=== PATIENT | female | born 1980 | race Caucasian/White ===

== ENCOUNTER → 2020-12-14 10:49 | Outpatient (CLI) | payer BC, SELFPAY ==
[2020-12-14 11:43] LABS: Basophils # 0.1 K/mm3 (0-0.2); Basophils % 0.9 % (0.1-2.0); Eosinophils # 0.3 K/mm3 (0.0-0.4); Eosinophils % 2.9 % (0.1-12.0); Hematocrit 37.5 % (37.0-47.0); Hemoglobin 12.5 g/dL (12.2-16.2); Lymphocytes # 3.6 K/mm3 (0.7-4.5); Lymphocytes % 35.6 % (10-50); Mean Corpuscular HGB Conc 33.5 g/dL (31.8-35.4); Mean Corpuscular Hemoglobin 28.9 pg (27.0-31.2); Mean Corpuscular Volume 86.3 fl (81-99); Mean Platelet Volume 8.6 fl (7.4-10.4); Monocytes # 0.5 K/mm3 (0.1-1.0); Monocytes % 5.3 % (1.7-9.3); Neutrophils # 5.6 K/mm3 (1.8-7.8); Neutrophils % 55.2 % (37.0-80.0); Platelet Count 559 K/mm3 (142-424); Red Blood Count 4.34 M/mm3 (4.20-5.40); Red Cell Distribution Width 15.7 % (11.5-17.5); White Blood Count 10.1 K/mm3 (4.8-10.8)
[2020-12-14 11:58] LABS: Alanine Aminotransferase 29 U/L (12-78); Albumin Level 4.2 g/dl (3.5-5.0); Albumin/Globulin Ratio 1.7 (1.1-1.8); Alkaline Phosphatase 107 U/L (38-126); Anion Gap 13.6 mEq/L (5-15); Aspartate Amino Transferase 35 U/L (14-36); Bilirubin,Total 0.5 mg/dl (0.2-1.3); Blood Urea Nitrogen 9 mg/dl (7-17); Calcium 9.5 mg/dl (8.4-10.2); Carbon Dioxide 25 mmol/L (22.0-30.0); Chloride 106 mmol/L (98-107); Chol/HDL Ratio 5.4 (1-3.5); Cholesterol 189 mg/dl (140-200); Estimated Glomerular Filt Rate 79 ml/min (>60); GFR (African American) 96 ML/MIN (>60); Globulin 2.5 g/dL (1.3-3.2); Glucose 107 mg/dl (74-100); HDL Cholesterol 35 mg/dl (40-60); Potassium 4.6 mmoL/L (3.5-5.1); Sodium 140 mmol/L (136-145); Total Protein,Serum 6.7 g/dl (6.3-8.2); Triglycerides 183 mg/dl (30-150); VLDL Cholesterol 37 mg/dL (0-40)
[2020-12-14 12:09] LABS: Direct LDL Cholesterol 120.18 mg/dL (100-129)
[2020-12-14 12:13] LABS: 25-OH Vitamin D, Total 33.3 ng/mL (30-100)
[2020-12-14 12:46] LABS: Vitamin B12 439 pg/mL (239-931)
[2020-12-15 11:27] LABS: Hemoglobin A1C 5.2 % (4.0-6.0)
== END ==
PROVIDERS: Internal Medicine Adolescent Medicine; Visit Provider Nurse Practitioner Family
DX: Z00.00 Encounter for general adult medical examination without abnormal findings (principal); I10 Essential (primary) hypertension; E03.9 Hypothyroidism, unspecified; R53.83 Other fatigue; R73.9 Hyperglycemia, unspecified
CPT/HCPCS: 36415; 80053; 80061; 82306; 82607; 83036; 84443; 85025

== ENCOUNTER → 2020-12-27 14:42 | Outpatient (CLI) | payer BC, SELFPAY ==
--- NOTE | 2020-12-27 14:45 | US_ITS ---
PROCEDURE: US THYROID CLINICAL INDICATION: THYROID NODULE Thyroid nodule COMPARISON: No exams were available for comparison FINDINGS: Right lobe: 4.7 x 2 x 1.6 cm. There is diffuse heterogeneous echogenicity of the thyroid gland. This makes nodule detection somewhat difficult. There does appear to be a mixed solid and cystic nodule within the lower pole measuring 8 x 7 mm. The nodule is taller than wide. No calcifications. Left lobe: 4 x 1.7 x 1.6 cm with diffuse heterogeneous echogenicity. No discrete nodule Isthmus: 3 mm in thickness. No discrete isthmus nodule. Additional findings: IMPRESSION: Heterogeneous echogenicity of the thyroid gland with a mixed solid and cystic nodule in the lower pole on the right at 8 x 7 mm T rads level 3. Recommend 12 month follow-up. Dictated by: Federico Chris MD 12/28/2020 07:34 Federico Chris MD in [place] 12/28/2020 07:34
--- NOTE | 2020-12-27 14:45 | MM_ITS ---
PROCEDURE: MM DIG SCREENING MAMM BI W/CAD Digital Breast Tomosynthesis Included CLINICAL INDICATION: SCREENING COMPARISON: MG BR-MAMMGRM MONA CHRISTOPHERA from 03/27/2018 TECHNIQUE: Standard CC and MLO images and 3D Tomosynthesis was obtained. R2 CAD reviewed. FINDINGS: Average fibroglandular tissue. Scattered benign-appearing calcifications. No malignant appearing mass or malignant-appearing microcalcification. IMPRESSION: Negative BI-RAD Category: 1 Negative FOLLOW-UP: 1 YR 1 Year Follow-up (A letter has been sent to the patient regarding results of the study.) Dictated by: Federico Chris MD 01/11/2021 17:58 Federico Chris MD in [facility] 01/11/2021 17:58
== END ==
LOC: RAD 14:43
PROVIDERS: PCP Nurse Practitioner Family; Visit Provider Nurse Practitioner Family
DX: Z12.31 Encounter for screening mammogram for malignant neoplasm of breast (principal); E04.1 Nontoxic single thyroid nodule
CPT/HCPCS: 76536; 77063; 77067

== ENCOUNTER → 2021-03-17 10:03 | Outpatient (CLI) | payer BC, SELFPAY ==
--- NOTE | 2021-03-17 10:09 | XR_ITS ---
PROCEDURE: XR RIBS LT MIN 3V W CXR1V CLINICAL INDICATION: PERSISTENT COUGH COMPARISON: No exams were available for comparison FINDINGS: Multiple views of the left ribs show no obvious fracture, dislocation, lytic change, or blastic change. No evidence of pneumothorax or pleural effusion. IMPRESSION: No acute findings. Dictated by: Federico Chris MD 03/17/2021 14:10 Federico Chris MD in [facility] 03/17/2021 14:10
--- NOTE | 2021-03-17 10:09 | XR_ITS ---
PROCEDURE: XR CHEST 2V CLINICAL HISTORY: PERSISTENT COUGH COMPARISON: CT CT ABDOMEN PELVIS W CON from 08/24/2019 FINDINGS: The cardiomediastinal silhouette and pulmonary vascularity are within normal limits. The lungs are clear without infiltrates, suspicious nodules, or pleural effusions. Calcified nodule left lower lobe. No acute bony findings. IMPRESSION: No acute findings. Dictated by: Federico Chris MD 03/17/2021 13:58 Federico Chris MD in [facility] 03/17/2021 13:58
== END ==
LOC: RAD 10:06
PROVIDERS: PCP Nurse Practitioner Family; Visit Provider Nurse Practitioner Family
DX: R07.81 Pleurodynia (principal); R05.3 Chronic cough
CPT/HCPCS: 71046; 71101

== ENCOUNTER 2021-04-25 20:29 | Emergency (ER) | payer BC, SELFPAY ==
[2021-04-25 20:32] VITALS: BP 198/138; PULSE 122; RESP 18; TEMP 37.1; O2SAT 96; BMI 37.8
--- NOTE | 2021-04-25 20:58 | CT_ITS ---
PROCEDURE INFORMATION: Exam: CT Abdomen And Pelvis With Contrast Exam date and time: 04/25/2021 8:58 PM Age: 41 years old Clinical indication: Abdominal pain; Localized; Left; Prior surgery; Surgery type: Gallbladder, tubal, kidney cyst drained; Patient HX: Lt sided abd pain for 6 months, nausea for 1 month TECHNIQUE: Imaging protocol: Computed tomography of the abdomen and pelvis with contrast. Radiation optimization: All CT scans at this facility use at least one of these dose optimization techniques: automated exposure control; mA and/or kV adjustment per patient size (includes targeted exams where dose is matched to clinical indication); or iterative reconstruction. Contrast material: ISOVUE; Contrast volume: 75 ml; Contrast route: IV; COMPARISON: CT ABDOMEN PELVIS W CON 08/24/2019 2:26 AM FINDINGS: Lungs: Calcified granuloma left lower lobe. There are calcified lymph nodes identified within the left hilar and infrahilar regions. No evidence of mass or infiltrate. No evidence of pleural effusion. Liver: The liver is normal in size and attenuation. No intrahepatic biliary dilitation. Gallbladder and bile ducts: The gallbladder is surgically absent. No evidence of extrahepatic biliary dilatation. Pancreas: Normal. No ductal dilation. Spleen: Normal. No splenomegaly. Granulomatous calcifications noted. Adrenal glands: Normal. No mass. Kidneys and ureters: Again, there are multiple cysts identified within the kidneys. An exophytic cyst of the superior pole the left kidney now measures 3.0 cm in diameter, compared with 2.1 cm on prior examination. Overall density however has decreased in the antrum. There is calcification along the wall of a small cyst within the inferior pole of the left kidney. Correlation with ultrasound of the retroperitoneum with attention to the kidneys would be helpful. Stomach and bowel: Unremarkable. No obstruction. No mucosal thickening. Small bowel mesentery is normal. Appendix: Unremarkable. Intraperitoneal space: Unremarkable. No free air. No significant fluid collection. Vasculature: Arterial atheromatous calcifications are noted. No abdominal aortic aneurysm. There are calcified phleboliths within the pelvis. Lymph nodes: Unremarkable. No enlarged lymph nodes. Urinary bladder: Unremarkable as visualized. Reproductive: Unremarkable as visualized. Bones/joints: Unremarkable. No acute fracture. Soft tissues: There is a small umbilical hernia which contains fat. IMPRESSION: 1. No evidence of acute process within the abdomen or pelvis. 2. Multiple cysts within the kidneys, particularly the left kidney. There is a cyst arising from the superior pole of the right kidney which has increased in size although by CT and has benign characteristics. Correlation with ultrasound of the retroperitoneum with attention to the kidneys may be helpful. 3. Small umbilical hernia which contains fat. COMMENTS: Consistent with the [employer]'s Incidental Findings Committee white paper (J Am Homa Radiol 2018): Any incidental renal lesion less than 1 cm or classified as too small to characterize, or any incidental cystic renal lesion characterized as simple-appearing, is likely benign. No follow-up imaging is recommended for these lesions per consensus recommendations based on imaging criteria.
--- NOTE | 2021-04-25 21:15 | HMH.EDGENADL ---
ED Disposition Clinical Impression: Flank pain, acute Hematuria Qualifiers: Hematuria type: unspecified type Qualified Code(s): R31.9 - Hematuria, unspecified Disposition: Home, Self-Care Condition on Discharge: Good Instructions: DI for Flank Pain Additional Instructions: call pcp for urine culture and follow up - may need to see urology Referrals: Provider,Referral, [Primary Care Provider] - - Critical Care Critical Care Time: No Attestation: On 04/25/21, the high probability of a clinically significant, sudden or life threatening deterioration of the following system(s) required my full and direct attention, intervention and personal management. The time I documented below is in addition to time spent performing reported procedures but includes the following listed in this critical care notation. Medical Decision Making - Medical Records Medical records reviewed: Yes: I reviewed the patient's medical records. - Varghese Inquiry Pt receiving controlled substance: No Vital Signs: 04/25/21 20:32 Temperature 98.8 F Temperature Source Oral Pulse Rate [Apical] 122 H Respiratory Rate 18 Blood Pressure [Right Arm] 198/138 H Blood Pressure Mean [Right Arm] 158 Blood Pressure Source [Right Arm] Automatic Cuff Blood Pressure Position [Right Arm] Sitting 02 Sat by Pulse Oximetry 96 Oxygen Delivery Method Room Air - Lab Data Lab results reviewed: Yes: I reviewed the patient's lab results. Lab Results 04/25/21 21:14: Urine Color Red, Urine Appearance Cloudy, Urine pH 5.5, Ur Specific Randolph 1.010, Urine Protein 2+, Urine Glucose (UA) Negative, Urine Ketones Negative, Urine Blood 3+, Urine Nitrate Negative, Urine Bilirubin 1+ A, Urine Urobilinogen 0.2, Ur Leukocyte Esterase 1+ A, Urine RBC Tntc, Urine WBC 10-20, Ur Squamous Epith Cells 3-5, Urine Bacteria 2+ 04/25/21 21:14: WBC 11.8 H, RBC 4.49, Hgb 13.3, Hct 40.2, MCV 89.5, MCH 29.6, MCHC 33.1, RDW 14.8, Plt Count 754 H, MPV 8.2, Neut % (Auto) 60.7, Lymph % (Auto) 29.5, Humphreys % (Auto) 6.2, Eos % (Auto) 2.8, Baso % (Auto) 0.9, Neut # (Auto) 7.2, Lymph # (Auto) 3.5, Humphreys # (Auto) 0.7, Eos # (Auto) 0.3, Baso # (Auto) 0.1, ESR 28 H 04/25/21 21:14: Sodium 141, Potassium 3.3 L, Chloride 104, Carbon Dioxide 27, Anion Gap 13.3, BUN 7, Creatinine 0.80, Estimated Creat Clear 149, Estimated GFR 79, Est GFR ( Amer) 95, Glucose 123 H, Calcium 10.2, Total Bilirubin 0.2, AST 70 H, ALT 50, Alkaline Phosphatase 128 H, C-Reactive Protein 3.4, Total Protein 7.4, Albumin 4.5, Globulin 2.9, Albumin/Globulin Ratio 1.6, Amylase 48, Procalcitonin 0.058 04/25/21 21:14: Lipase 48 Result diagrams: 04/25/21 21:14 04/25/21 21:14 Orders (Tests/Meds): ED MEDICATIONS Discontinued Medications Generic Name Dose Route Start Last Admin Trade Name Freq PRN Reason Stop Dose Admin Sodium Chloride 1,000 mls @ 999 mls/hr 04/25/21 21:30 04/25/21 21:28 Sod Chlor 0.9% 1000ml Bag IV 04/25/21 22:30 999 mls/hr .Q1H1M ANIL Administration Iopamidol 75 ml 04/25/21 22:06 04/25/21 22:06 Iopamidol-370 (76%);100ml Bottle IV 04/25/21 22:07 75 ml ONCE ONE Administration Sodium Chloride 10 ml 04/25/21 22:06 04/25/21 22:06 Sodium Chloride 0.9% 10ml Syr (Rad Only) IV 04/25/21 22:07 10 ml ONCE ONE Administration ORDERS Category Date Time Status Urine Culture Stat Micro 04/25/21 21:14 Received - CT Data CT Scan: Abdomen, Pelvis Time Received: 23:[address] Reviewed: Yes: I have viewed the radiologist's interpretation Preliminary Findings: Normal/NAD Medical Decision Narrative: has abn urine but otherwise ok labs and ct General Adult HPI - General Chief complaint: PAIN Stated complaint: cough,nausa, left side pain Time Seen by Provider: 04/25/21 21:16 Mode of Arrival: Ambulatory Source of Information: Patient, Medical Record Limitations: No Limitations Description of Symptoms (Recalled from ER Triage Doc. by RN): Patient c/o left sided abdomi
[2021-04-25 21:22] LABS: Microscopic, Urine URINE MICROSCOPIC (MICROSCOPIC)
[2021-04-25 21:25] LABS: Basophils # 0.1 K/mm3 (0-0.2); Basophils % 0.9 % (0.1-2.0); Eosinophils # 0.3 K/mm3 (0.0-0.4); Eosinophils % 2.8 % (0.1-12.0); Hematocrit 40.2 % (37.0-47.0); Hemoglobin 13.3 g/dL (12.2-16.2); Lymphocytes # 3.5 K/mm3 (0.7-4.5); Lymphocytes % 29.5 % (10-50); Mean Corpuscular HGB Conc 33.1 g/dL (31.8-35.4); Mean Corpuscular Hemoglobin 29.6 pg (27.0-31.2); Mean Corpuscular Volume 89.5 fl (81-99); Mean Platelet Volume 8.2 fl (7.4-10.4); Monocytes # 0.7 K/mm3 (0.1-1.0); Monocytes % 6.2 % (1.7-9.3); Neutrophils # 7.2 K/mm3 (1.8-7.8); Neutrophils % 60.7 % (37.0-80.0); Platelet Count 754 K/mm3 (142-424); Red Blood Count 4.49 M/mm3 (4.20-5.40); Red Cell Distribution Width 14.8 % (11.5-17.5); White Blood Count 11.8 K/mm3 (4.8-10.8)
[2021-04-25 21:36] LABS: Chloride 104 mmol/L (98-107); Potassium 3.3 mmoL/L (3.5-5.1); Sodium 141 mmol/L (136-145)
[2021-04-25 21:38] LABS: Amylase 48 U/L (30-110); Blood Urea Nitrogen 7 mg/dl (7-17)
[2021-04-25 21:39] LABS: Alanine Aminotransferase 50 U/L (12-78); Albumin Level 4.5 g/dl (3.5-5.0); Albumin/Globulin Ratio 1.6 (1.1-1.8); Alkaline Phosphatase 128 U/L (38-126); Anion Gap 13.3 mEq/L (5-15); Aspartate Amino Transferase 70 U/L (14-36); Bilirubin,Total 0.2 mg/dl (0.2-1.3); Calcium 10.2 mg/dl (8.4-10.2); Carbon Dioxide 27 mmol/L (22.0-30.0); Creatinine Clearance Estimated 149 mL/min (50-200); Estimated Glomerular Filt Rate 79 ml/min (>60); GFR (African American) 95 ML/MIN (>60); Globulin 2.9 g/dL (1.3-3.2); Glucose 123 mg/dl (74-100); Lipase 48 U/L (23-300); Total Protein,Serum 7.4 g/dl (6.3-8.2)
[2021-04-25 21:41] LABS: Appearance,Urine CLOUDY (Clear); Blood, Urine 3+ (Negative); Color,Urine RED (Yellow); Glucose,Urine (UA) Negative (Negative); Ketones,Urine Negative (Negative); Leukocyte Esterase,Urine 1+ (Negative); Nitrate,Urine Negative (Negative); PH,Urine 5.5 (5.0-8.5); Protein,Urine 2+ (Negative); Urobilinogen,Urine 0.2 EU/dl (0.2)
[2021-04-25 21:45] LABS: C-Reactive Protein 3.4 mg/L (0-4)
[2021-04-25 21:55] LABS: Erythrocyte Sedimentation Rate 28 mm/hr (0-20)
[2021-04-25 22:00] LABS: Bilirubin,Urine 1+ (Negative)
[2021-04-25 22:07] LABS: Bacteria,Urine 2+ /lpf; RBC,Urine TNTC #/hpf (0-3)
[2021-04-25 22:16] LABS: Procalcitonin 0.058 ng/mL (0.0-2.0)
[2021-04-25 23:46] VITALS: BP 168/98; PULSE 73; RESP 18; TEMP 36.6; O2SAT 97
== END 2021-04-25 23:48 | disposition home or self-care (01) ==
PROVIDERS: Emergency Provider Emergency Medicine
DX: R10.11 Right upper quadrant pain (principal); R31.9 Hematuria, unspecified
CPT/HCPCS: 74177; 80053; 81001; 82150; 83690; 84145; 85025; 85651; 86140; 87086; 96365; 96375; 99283; J2405; Q9967

== ENCOUNTER 2021-07-27 20:00 | Emergency (ER) | payer BC, MEDICAID, SELFPAY ==
--- NOTE | 2021-07-27 20:59 | HMH.EDUTC ---
[facility] [place] Disposition Clinical Impression: COVID-19 Asthma Qualifiers: Asthma severity: unspecified severity Asthma persistence: unspecified Asthma complication type: unspecified Qualified Code(s): J45.909 - Unspecified asthma, uncomplicated Disposition: Home, Self-Care Condition on Discharge: Good Instructions: DI for COVID-19 (Suspected or Confirmed ), Preventing the Spread of Coronavirus Discharge Instructions Additional Instructions: Drink plenty of fluids. Take tylenol or ibuprofen for pain or fever. Take the medications as directed. Follow up with your regular doctor. GO TO THE ER FOR ANY WORSENING SYMPTOMS Quarantine until you know the results of your covid-19 test. Notify your school or workplace of your results and follow their instructions regarding return to work/school. Prescriptions: Albuterol Sulfate [Albuterol Sulfate Hfa] 2 puffs IH Q6HP PRN 30 Days #1 each PRN Reason: Shortness Of Breath Transmission Status: Received by [facility] Promethazine/Dextromethorphan [Promethazine-Dm Syrup] 5 ml PO Q6HP PRN #240 ml PRN Reason: Cough Transmission Status: Received by [facility] methylPREDNISolone [Medrol] 4 mg PO DIRECTED 6 Days #21 packet Transmission Status: Received by [facility] Azithromycin [Z-Lalo 250mg Tab*] 250 mg PO UD DOSE PK #6 tab Transmission Status: Received by [facility] Referrals: Provider,Referral, [Primary Care Provider] - Time of Disposition: 21:37 Medical Decision Making - Medical Records Medical records reviewed: No: I reviewed the patient's medical records. - Varghese Inquiry Pt receiving controlled substance: No Vital Signs: 07/27/21 21:12 07/27/21 21:20 Temperature 99.1 F 99.1 F Temperature Source Oral Pulse Rate 117 H Pulse Rate [Left] 117 H Respiratory Rate 16 16 Blood Pressure 153/86 H Blood Pressure [Right Arm] 153/86 H Blood Pressure Mean [Right Arm] 108 02 Sat by Pulse Oximetry 98 [facility] [place] HPI - General Stated complaint: covid test/treated for symptoms Time Seen by Provider: 07/27/21 21:32 - History of Present Illness Provider Complaint: She states that for the past 1 day, she has had chills, fever, malaise and body aches. She has been vaccinated against covid-19. - Related Data Home Medications Medication Instructions Recorded Confirmed Amlodipine Besylate [Amlodipine 5 mg PO DAILY 04/25/21 04/25/21 10mg Tab] Furosemide [Furosemide 20mg Tab*] 20 mg PO DAILY 04/25/21 04/25/21 Levothyroxine Sodium [Euthyrox] 75 mcg PO DAILY 04/25/21 04/25/21 Previous Rx's Medication Instructions Recorded Albuterol Sulfate [Albuterol 2 puffs IH Q6HP PRN 30 Days #1 each 07/27/21 Sulfate Hfa] Azithromycin [Z-Lalo 250mg Tab*] 250 mg PO UD DOSE PK #6 tab 07/27/21 Promethazine/Dextromethorphan 5 ml PO Q6HP PRN #240 ml 07/27/21 [Promethazine-Dm Syrup] methylPREDNISolone [Medrol] 4 mg PO DIRECTED 6 Days #21 07/27/21 packet Allergies Allergy/AdvReac Type Severity Reaction Status Date / Time levofloxacin [From Levaquin] Allergy Verified 08/24/19 00:07 Penicillins Allergy Verified 08/24/19 00:07 [facility] History - Hepatitis A Screen Attestation statement:: This patient has been screened for Hepatitis A risk factors. I have reviewed the patient's past medical history: Yes Medical History: Denies:: Diabetes Mellitus Type 1, Diabetes Mellitus Type 2 - Social History Smoking Status: Never smoker Alcohol Intake: never Occupational Status: other Housing: house ROS Obtained: Yes All systems reviewed & no additional complaints - Constitutional Constitutional: Reports as per HPI - Eyes Eyes: Denies eye discharge - ENT Ears, Nose, Mouth, and Throat: Reports as per HPI - Cardiovascular Cardiovascular: Denies chest pain - Respiratory Respiratory: Reports chest congestion, Reports cough, Denies dyspnea, Denies stridor, Denies wheezing Physical Exam -
[2021-07-27 21:12] VITALS: BP 153/86; PULSE 117; RESP 16; TEMP 37.3; O2SAT 98; BMI 37.8
[2021-07-27 21:20] VITALS: BP 153/86; PULSE 117; RESP 16; TEMP 37.3
== END 2021-07-27 21:44 | disposition home or self-care (01) ==
PROVIDERS: Emergency Provider Nurse Practitioner Family
DX: U07.1 COVID-19 (principal); J45.909 Unspecified asthma, uncomplicated
CPT/HCPCS: 99212; C9803; G0463; U0003; U0005

== ENCOUNTER 2021-11-10 13:53 | Emergency (ER) | payer MEDICAID, SELFPAY ==
[2021-11-10 14:00] VITALS: BP 158/86; PULSE 103; RESP 18; TEMP 36.8; O2SAT 98; BMI 38.1
[2021-11-10 14:10] VITALS: BP 158/86; PULSE 103; RESP 18; TEMP 36.8; O2SAT 98
--- NOTE | 2021-11-10 14:10 | HMH.EDUTC ---
[facility] [place] Clinical Impression: Insect bite Qualifiers: Encounter type: initial encounter Site of insect bite: upper arm Laterality: left Qualified Code(s): S40.862A - Insect bite (nonvenomous) of left upper arm, initial encounter; W57.XXXA - Bitten or stung by nonvenomous insect and other nonvenomous arthropods, initial encounter Cellulitis Qualifiers: Site of cellulitis: extremity Site of cellulitis of extremity: lower extremity Laterality: left Qualified Code(s): L03.116 - Cellulitis of left lower limb Disposition: Home, Self-Care Condition on Discharge: Good Instructions: How to Care for an Insect Bite or Sting, DI for Cellulitis -- Adult Additional Instructions: if worsen return or be seen in ed follow up with pcp if no improvement antibiotics as ordered cream bid Prescriptions: cephALEXin [Cephalexin 500mg Tab] 500 mg PO BID 7 Days #14 tab [facility] Triamcinolone Acetonide 1 applic TP BID 3 Days #15 gm Transmission Status: Pending to [facility] Referrals: Provider,Referral, MD [Primary Care Provider] - Time of Disposition: 14:18 Medical Decision Making - Varghese Inquiry Pt receiving controlled substance: No Vital Signs: 11/10/21 14:00 11/10/21 14:10 Temperature 98.3 F 98.3 F Temperature Source Oral Pulse Rate 103 H Pulse Rate [Right Brachial] 103 H Respiratory Rate 18 18 Blood Pressure 158/86 H Blood Pressure [Right Arm] 158/86 H Blood Pressure Mean [Right Arm] 110 Blood Pressure Source [Right Arm] Automatic Cuff Blood Pressure Position [Right Arm] Sitting 02 Sat by Pulse Oximetry 98 Oxygen Delivery Method Room Air [facility] [place] HPI - General Chief complaint: Urgent Treatment Center Stated complaint: insect bite Time Seen by Provider: 11/10/21 14:10 Mode of Arrival: Ambulatory Source of Information: Patient Limitations: No Limitations Description of Symptoms (Recalled from Triage Doc. by RN): PATIENT C/O BITE TO LEFT UPPER ARM THAT HAPPENED YESTERDAY. SWELLING AND REDNESS NOTED AROUND AREA HEENT Symptoms (Recalled from RN notes): No Resp Symptoms (Recalled from RN notes): No Skin Symptoms (Recalled from RN notes): Yes MS Symptoms (Recalled from RN notes): No Functional Status (Recalled from RN notes): WNL - History of Present Illness Provider Complaint: 41 yr old female presents for insect bite to left upper arm that happened yesterday and worse today. - Related Data Home Medications Medication Instructions Recorded Confirmed Levothyroxine Sodium [Euthyrox] 75 mcg PO DAILY 04/25/21 11/10/21 Previous Rx's Medication Instructions Recorded Triamcinolone Acetonide 1 applic TP BID 3 Days #15 gm 11/10/21 cephALEXin [Cephalexin 500mg Tab] 500 mg PO BID 7 Days #14 tab 11/10/21 Allergies Allergy/AdvReac Type Severity Reaction Status Date / Time levofloxacin [From Levaquin] Allergy Verified 08/24/19 00:07 Penicillins Allergy Verified 08/24/19 00:07 - Worker's Comp Is this a Worker's Comp case?: No [facility] History - Hepatitis A Screen Attestation statement:: This patient has been screened for Hepatitis A risk factors. I have reviewed the patient's past medical history: Yes Medical History: Denies:: Diabetes Mellitus Type 1, Diabetes Mellitus Type 2 - Social History Smoking Status: Never smoker Alcohol Intake: never Occupational Status: other Housing: house ROS Obtained: Yes Systems reviewed as appropriate & no additional complaints - Constitutional Constitutional: Reports system reviewed and no additional complaints, except as docu, Denies fever(s) - Eyes Eyes: Reports system reviewed and no additional complaints, except as docu, Denies dry eyes - ENT Ears, Nose, Mouth, and Throat: Reports system reviewed and no additional complaints, except as docu, Denies sore throat - Cardiovascular Cardiovascular: Reports system reviewed and no additional complaints, except as docu, Denies chest pain
== END 2021-11-10 14:20 | disposition home or self-care (01) ==
PROVIDERS: Emergency Provider Nurse Practitioner Family
DX: S40.862A Insect bite (nonvenomous) of left upper arm, initial encounter (principal); L03.116 Cellulitis of left lower limb; Z79.51 Long term (current) use of inhaled steroids; Z79.899 Other long term (current) drug therapy; Z88.0 Allergy status to penicillin; Z88.8 Allergy status to other drugs, medicaments and biological substances; W57.XXXA Bitten or stung by nonvenomous insect and other nonvenomous arthropods, initial encounter
CPT/HCPCS: 99213; G0463

== ENCOUNTER 2021-11-12 12:15 | Emergency (ER) | payer MEDICAID, SELFPAY ==
[2021-11-12 12:30] VITALS: BP 153/93; PULSE 92; RESP 18; TEMP 36.7; O2SAT 98; BMI 37.4
[2021-11-12 12:42] VITALS: BP 153/92; PULSE 92; RESP 18; TEMP 36.7; O2SAT 98; BMI 37.4
--- NOTE | 2021-11-12 13:02 | HMH.EDUTC ---
[facility] [place] Impression: Abscess of left arm, Cellulitis of left arm Disposition: Home, Self-Care Condition on Discharge: Good Instructions: Cellulitis, Boil Additional Instructions: Keep the affected area clean and dry. Follow up with your regular doctor. Take the antibiotics as directed and apply the topical antibiotics as directed. Apply warm wet compresses to the affected area three or four times per day. GO TO THE ER FOR ANY WORSENING SYMPTOMS Watch the redness and if it continues to spread outside the lines please return and go to the er. Keep taking the cephalexin that you are on. Prescriptions: Sulfamethoxazole/Trimethoprim [Bactrim DS tablet] 1 each PO BID 10 Days #20 tab Transmission Status: Received by [facility] Mupirocin [Bactroban 2% Ointment 22gm tube] 1 applicatio TP TID 7 Days #1 gm Transmission Status: Received by [facility] Referrals: Provider,Referral, [Primary Care Provider] - Time of Disposition: 13:29 Medical Decision Making - Medical Records Medical records reviewed: No: I reviewed the patient's medical records. - Varghese Inquiry Pt receiving controlled substance: No Vital Signs: 11/12/21 12:30 11/12/21 12:42 11/12/21 13:31 Temperature 98.0 F 98.0 F 98.0 F Temperature Source Oral Oral Pulse Rate 92 H Pulse Rate [Brachial] 92 H 92 H Respiratory Rate 18 18 18 Blood Pressure 153/92 H Blood Pressure [Right Arm] 153/93 H 153/92 H Blood Pressure Mean [Right Arm] 113 112 Blood Pressure Source [Right Arm] Automatic Cuff Blood Pressure Position [Right Arm] Sitting 02 Sat by Pulse Oximetry 98 98 Oxygen Delivery Method Room Air Orders (Tests/Meds): ED MEDICATIONS Discontinued Medications Generic Name Dose Route Start Last Admin Trade Name Freq PRN Reason Stop Dose Admin Ceftriaxone Sodium 1 gm 11/12/21 13:08 11/12/21 13:20 Ceftriaxone 1gm Vial IM 11/12/21 13:09 1 gm ONCE ONE Administration Lidocaine HCl 0 ml 11/12/21 13:08 11/12/21 13:20 Lidocaine 1% 5ml Pf Vial IM 11/12/21 13:09 2 ml ONCE ONE Administration ORDERS Category Date Time Status Wound Culture and Gram Stain Stat Micro 11/12/21 13:[address] [facility] [place] - General Stated complaint: insect bite; red/swelling Time Seen by Provider: 11/12/21 13:03 Description of Symptoms (Recalled from Triage Doc. by RN): patient comes in today with a bug bite to left arm. patient does not know what bit her. patient states the bit occured sunday night and has progressively gotten worse HEENT Symptoms (Recalled from RN notes): No Resp Symptoms (Recalled from RN notes): No Skin Symptoms (Recalled from RN notes): Yes MS Symptoms (Recalled from RN notes): No Functional Status (Recalled from RN notes): wnl - History of Present Illness Provider Complaint: She states that she recieved a bug bite to her left arm 3 days ago. Since then, the site has gotten progressively more red and mildly swollen. - Related Data Home Medications Medication Instructions Recorded Confirmed Levothyroxine Sodium [Euthyrox] 75 mcg PO DAILY 04/25/21 11/12/21 Previous Rx's Medication Instructions Recorded Triamcinolone Acetonide 1 applic TP BID 3 Days #15 gm 11/10/21 cephALEXin [Cephalexin 500mg Tab] 500 mg PO BID 7 Days #14 tab 11/10/21 Mupirocin [Bactroban 2% Ointment 1 applicatio TP TID 7 Days #1 gm 11/12/21 22gm tube] Sulfamethoxazole/Trimethoprim 1 each PO BID 10 Days #20 tab 11/12/21 [Bactrim DS tablet] Allergies Allergy/AdvReac Type Severity Reaction Status Date / Time levofloxacin [From Levaquin] Allergy Verified 11/12/21 12:45 Penicillins Allergy Verified 11/12/21 12:45 - Worker's Comp Is this a Worker's Comp case?: No [facility] History - Hepatitis A Screen Attestation statement:: This patient has been screened for Hepatitis A risk factors. I have reviewed the patient's past medical history: Yes Med
[2021-11-12 13:31] VITALS: BP 153/92; PULSE 92; RESP 18; TEMP 36.7
== END 2021-11-12 13:35 | disposition home or self-care (01) ==
LOC: ER 12:34 → UTC 12:34
PROVIDERS: Emergency Provider Nurse Practitioner Family
DX: L02.818 Cutaneous abscess of other sites (principal); L03.114 Cellulitis of left upper limb; T14.8XXA Other injury of unspecified body region, initial encounter; Z79.899 Other long term (current) drug therapy; Z88.0 Allergy status to penicillin; Z88.8 Allergy status to other drugs, medicaments and biological substances
CPT/HCPCS: 87070; 87205; 99213; G0463; J0696

== ENCOUNTER 2021-11-13 22:13 | Emergency (ER) | payer MEDICAID, SELFPAY ==
[2021-11-13 22:14] VITALS: BP 159/91; PULSE 96; RESP 18; TEMP 36.9; O2SAT 99; BMI 36.3
[2021-11-14 00:27] VITALS: BMI 36.3
[2021-11-14 00:34] LABS: Basophils # 0.3 K/mm3 (0-0.2); Basophils % 2.7 % (0.1-2.0); Eosinophils # 0.7 K/mm3 (0.0-0.4); Eosinophils % 5.7 % (0.1-12.0); Hematocrit 39.3 % (37.0-47.0); Hemoglobin 12.9 g/dL (12.2-16.2); Lymphocytes # 3.3 K/mm3 (0.7-4.5); Mean Corpuscular Hemoglobin 27.9 pg (27.0-31.2); Mean Corpuscular Volume 84.7 fl (81-99); Mean Platelet Volume 8.9 fl (7.4-10.4); Monocytes # 0.6 K/mm3 (0.1-1.0); Monocytes % 4.6 % (1.7-9.3); Neutrophils # 7.4 K/mm3 (1.8-7.8); Platelet Count 699 K/mm3 (142-424); Red Blood Count 4.64 M/mm3 (4.20-5.40); Red Cell Distribution Width 16.5 % (11.5-17.5); White Blood Count 12.3 K/mm3 (4.8-10.8)
--- NOTE | 2021-11-14 00:36 | HMH.EDSKAF ---
ED Disposition Clinical Impression: SIRS (systemic inflammatory response syndrome) Cellulitis Qualifiers: Site of cellulitis: extremity Site of cellulitis of extremity: upper extremity Laterality: left Qualified Code(s): L03.114 - Cellulitis of left upper limb Disposition: Home, Self-Care Condition on Discharge: Good Instructions: Cellulitis Additional Instructions: use meds and see pcp for follow up Referrals: Provider,Referral, MD [Primary Care Provider] - - Critical Care Critical Care Time: No Attestation: On 11/13/21, the high probability of a clinically significant, sudden or life threatening deterioration of the following system(s) required my full and direct attention, intervention and personal management. The time I documented below is in addition to time spent performing reported procedures but includes the following listed in this critical care notation. Medical Decision Making - Medical Records Medical records reviewed: Yes: I reviewed the patient's medical records. - [place] Inquiry Pt receiving controlled substance: No Vital Signs: 11/13/21 22:14 Temperature 98.5 F Temperature Source Oral Pulse Rate [Right] 96 H Respiratory Rate 18 Blood Pressure [Right Arm] 159/91 H Blood Pressure Mean [Right Arm] 113 Blood Pressure Source [Right Arm] Automatic Cuff 02 Sat by Pulse Oximetry 99 Oxygen Delivery Method Room Air - Lab Data Lab results reviewed: Yes: I reviewed the patient's lab results. Lab Results 11/14/21 00:20: WBC 12.3 H, RBC 4.64, Hgb 12.9, Hct 39.3, MCV 84.7, MCH 27.9, MCHC 33.0, RDW 16.5, Plt Count 699 H, MPV 8.9, Neut % (Auto) 60.0, Lymph % (Auto) 27.0, [place] % (Auto) 4.6, Eos % (Auto) 5.7, Baso % (Auto) 2.7 H, Neut # (Auto) 7.4, Lymph # (Auto) 3.3, [place] # (Auto) 0.6, Eos # (Auto) 0.7 H, Baso # (Auto) 0.3 H 11/14/21 00:20: Sodium 136, Potassium 3.8, Chloride 103, Carbon Dioxide 24, Anion Gap 12.8, BUN 10, Creatinine 1.00, Estimated Creat Clear 118, Estimated GFR 61, Est GFR ( Amer) 74, Glucose 105 H, Calcium 9.8, Total Bilirubin 0.1 L, AST 53 H, ALT 51, Alkaline Phosphatase 147 H, C-Reactive Protein 6.7 H, Total Protein 7.5, Albumin 4.4, Globulin 3.1, Albumin/Globulin Ratio 1.4, Procalcitonin 0.049 Result diagrams: 11/14/21 00:20 11/14/21 00:20 Orders (Tests/Meds): ED MEDICATIONS Generic Name Dose Route Start Last Admin Trade Name Freq PRN Reason Stop Dose Admin Vancomycin HCl 2,000 mg/ 250 mls @ 125 mls/hr 11/14/21 01:15 Sodium Chloride IV 11/14/21 03:14 ONCE ONE Miscellaneous 1 each 11/14/21 00:30 Vancomycin Consult Request * 12/14/21 00:29 CONSULT PHARMACY [facility]IL Discontinued Medications Generic Name Dose Route Start Last Admin Trade Name Freq PRN Reason Stop Dose Admin Ketorolac Tromethamine 30 mg 11/14/21 00:29 11/14/21 00:40 Ketorolac 30mg/Ml Vial IV 11/14/21 00:30 30 mg ONCE ONE Administration Methylprednisolone Sodium Succinate 125 mg 11/14/21 00:29 11/14/21 00:40 Methylprednisolone Sod Succ 125mg Vial IV 11/14/21 00:30 125 mg ONCE ONE Administration ORDERS Category Date Time Status Complete Blood Count Auto Diff Stat Lab 11/14/21 00:20 Results Erythrocyte Sedimentation Rate Stat Lab 11/14/21 00:20 Results Blood Culture Stat Micro 11/14/21 00:20 Received Medical Decision Narrative: pt with cellulitis and continue abx - stable labs Skin/Abscess/FB HPI - General Chief complaint: Skin/Abscess/Foreign Body Stated complaint: was bitten by something R Arm Time Seen by Provider: 11/14/21 00:00 Mode of Arrival: Family Vehicle Source of Information: Patient, Medical Record Limitations: No Limitations Description of Symptoms (Recalled from ER Triage Doc. by RN): Pt c/o insect bit to left upper arm. She was seen at [facility] on , given Keflex. Swelling and redness worsened so pt went back to [facility] on Sunday and was given Bactrim and Rocephin IM injection. They marked her arm in a border. The r
[2021-11-14 00:44] LABS: Alanine Aminotransferase 51 U/L (12-78); Albumin Level 4.4 g/dl (3.5-5.0); Albumin/Globulin Ratio 1.4 (1.1-1.8); Alkaline Phosphatase 147 U/L (38-126); Anion Gap 12.8 mEq/L (5-15); Aspartate Amino Transferase 53 U/L (14-36); Blood Urea Nitrogen 10 mg/dl (7-17); Calcium 9.8 mg/dl (8.4-10.2); Carbon Dioxide 24 mmol/L (22.0-30.0); Chloride 103 mmol/L (98-107); Creatinine Clearance Estimated 118 mL/min (50-200); Estimated Glomerular Filt Rate 61 ml/min (>60); GFR (African American) 74 ML/MIN (>60); Globulin 3.1 g/dL (1.3-3.2); Glucose 105 mg/dl (74-100); Potassium 3.8 mmoL/L (3.5-5.1); Sodium 136 mmol/L (136-145); Total Protein,Serum 7.5 g/dl (6.3-8.2)
[2021-11-14 00:49] LABS: C-Reactive Protein 6.7 mg/L (0-4)
[2021-11-14 00:52] LABS: Bilirubin,Total 0.1 mg/dl (0.2-1.3)
--- NOTE | 2021-11-14 01:02 | PC.NURSE ---
called night-watch and s/w Jone for vanc dosing
[2021-11-14 01:03] LABS: Procalcitonin 0.049 ng/mL (0.0-2.0)
[2021-11-14 01:09] LABS: Erythrocyte Sedimentation Rate 21 mm/hr (0-20)
[2021-11-14 02:21] VITALS: BP 159/90; PULSE 95; RESP 18; TEMP 36.8; O2SAT 99
--- NOTE | 2021-11-14 02:28 | PC.NURSE ---
Patient is resting in bed. Tolerating IV vancomycin well. Drink given to patient.
== END 2021-11-14 03:47 | disposition home or self-care (01) ==
PROVIDERS: Emergency Provider Emergency Medicine
DX: L03.114 Cellulitis of left upper limb (principal)
CPT/HCPCS: 80053; 84145; 85025; 85651; 86140; 87040; 96365; 96366; 96375; 99284; J3370

== ENCOUNTER 2021-11-18 16:18 | Emergency (ER) | payer MEDICAID, SELFPAY ==
[2021-11-18 18:49] VITALS: BP 166/92; PULSE 98; RESP 18; TEMP 36.9; O2SAT 100; BMI 37.4
[2021-11-18 19:29] VITALS: BP 149/94; PULSE 97; O2SAT 98
[2021-11-18 19:45] VITALS: BP 163/102; PULSE 94; O2SAT 98
--- NOTE | 2021-11-18 20:09 | HMH.EDGENADL ---
ED Disposition Clinical Impression: Insect bite Qualifiers: Site of insect bite: upper arm Disposition: Home, Self-Care Condition on Discharge: Good Instructions: DI for Insect Bites and Stings Additional Instructions: Please continue to take your antibiotics as prescribed. Continue to watch out for any systemic symptoms we discussed such as a fever, nausea, vomiting, generalized malaise. Please follow-up with your primary care physician in 3 to 5 days to recheck your wound to ensure its not worsening. You may return to the emergency department should any other concerns arise or your condition worsen. Continue supportive care at home with Motrin, Tylenol. Referrals: Provider,Referral, [Primary Care Provider] - - Critical Care Critical Care Time: No Attestation: On 11/18/21, the high probability of a clinically significant, sudden or life threatening deterioration of the following system(s) required my full and direct attention, intervention and personal management. The time I documented below is in addition to time spent performing reported procedures but includes the following listed in this critical care notation. Medical Decision Making - Medical Records Medical records reviewed: Yes: I reviewed the patient's medical records. - [place] Inquiry Pt receiving controlled substance: No Vital Signs: 11/18/21 18:49 11/18/21 19:29 11/18/21 19:45 Temperature 98.5 F Temperature Source Oral Pulse Rate 97 H 94 H Pulse Rate [Right Brachial] 98 H Respiratory Rate 18 Blood Pressure 149/94 H 163/102 H Blood Pressure [Right Arm] 166/92 H Blood Pressure Mean [Right Arm] 116 Blood Pressure Source [Right Arm] Automatic Cuff Blood Pressure Position [Right Arm] Sitting 02 Sat by Pulse Oximetry 100 98 98 Oxygen Delivery Method Room Air Room Air Room Air - Lab Data Lab results reviewed: Yes: I reviewed the patient's lab results. Lab Results 11/18/21 22:00: WBC 12.1 H, RBC 4.41, Hgb 12.5, Hct 39.1, MCV 88.7, MCH 28.3, MCHC 31.9, RDW 16.5, Plt Count 663 H, MPV 7.9, Neut % (Auto) 60.6, Lymph % (Auto) 29.1, [place] % (Auto) 4.2, Eos % (Auto) 4.7, Baso % (Auto) 1.4, Neut # (Auto) 7.3, Lymph # (Auto) 3.5, [place] # (Auto) 0.5, Eos # (Auto) 0.6 H, Baso # (Auto) 0.2 11/18/21 22:00: Sodium 135 L, Potassium 4.1, Chloride 102, Carbon Dioxide 27, Anion Gap 10.1, BUN 9, Creatinine 0.90, Estimated Creat Clear 131, Estimated GFR 69, Est GFR ( Amer) 83, Glucose 107 H, Calcium 9.4, Total Bilirubin 0.4, AST 39 H, ALT 37, Alkaline Phosphatase 150 H, C-Reactive Protein 7.6 H, Total Protein 7.6, Albumin 4.5, Globulin 3.1, Albumin/Globulin Ratio 1.5 11/18/21 22:00: Total Creatine Kinase 31 11/18/21 23:15: Lactate 0.7 Result diagrams: 11/18/21 22:00 11/18/21 22:00 Orders (Tests/Meds): ED MEDICATIONS Discontinued Medications Generic Name Dose Route Start Last Admin Trade Name Topherq PRN Reason Stop Dose Admin Acetaminophen 1,000 mg 11/18/21 20:45 11/18/21 21:48 Acetaminophen 500mg Tab PO 11/18/21 20:46 1,000 mg ONCE ONE Administration Iopamidol 75 ml 11/18/21 22:23 11/18/21 22:23 Iopamidol-370 (76%);100ml Bottle IV 11/18/21 22:24 75 ml ONCE ONE Administration Ketorolac Tromethamine 15 mg 11/18/21 20:45 11/18/21 21:48 Ketorolac 30mg/Ml Vial IV 11/18/21 20:46 15 mg ONCE ONE Administration Sodium Chloride 10 ml 11/18/21 22:23 11/18/21 22:23 Sodium Chloride 0.9% 10ml Syr (Rad Only) IV 11/18/21 22:24 10 ml ONCE ONE Administration Medical Decision Narrative: Patient is a 41-year-old female presenting with a history of insect bite with worsening redness and swelling. Differential diagnosis includes, but is not limited to, brown recluse bite, soft tissue necrosis, abscess, cellulitis, other. Initial exam, patient is hemodynamically stable nontoxic-appearing, denies systemic symptoms. She was evaluated with CBC, CMP, CRP, CT of the left upper extremity. Work shows v
--- NOTE | 2021-11-18 20:38 | CT_ITS ---
PROCEDURE INFORMATION: Exam: CT Left Upper Extremity With Contrast Exam date and time: 11/18/2021 10:02 PM Age: 41 years old Clinical indication: Swelling; Arm, lower and elbow; Left; Additional info: Wound, swelling, redness TECHNIQUE: Imaging protocol: Computed tomography of the Left upper extremity with contrast. Radiation optimization: All CT scans at this facility use at least one of these dose optimization techniques: automated exposure control; mA and/or kV adjustment per patient size (includes targeted exams where dose is matched to clinical indication); or iterative reconstruction. Contrast material: ISOVUE; Contrast volume: 75 ml; Contrast route: IV; COMPARISON: CR XR CHEST 2V 03/17/2021 10:13 AM FINDINGS: Bones/joints: No fracture or CT evidence for osteomyelitis. Soft tissues: No visualized abscess. No soft tissue gas. IMPRESSION: 1. No visualized abscess. No soft tissue gas. 2. No fracture or CT evidence for osteomyelitis.
--- NOTE | 2021-11-18 20:39 | CT_ITS ---
PROCEDURE INFORMATION: Exam: CT Left Upper Extremity With Contrast Exam date and time: 11/18/2021 10:02 PM Age: 41 years old Clinical indication: Swelling; Arm, lower and elbow; Left; Additional info: Wound, redness , swelling TECHNIQUE: Imaging protocol: Computed tomography of the Left upper extremity with contrast. Radiation optimization: All CT scans at this facility use at least one of these dose optimization techniques: automated exposure control; mA and/or kV adjustment per patient size (includes targeted exams where dose is matched to clinical indication); or iterative reconstruction. Contrast material: ISOVUE; Contrast volume: 75 ml; Contrast route: IV; COMPARISON: No relevant prior studies available. FINDINGS: Bones/joints: No fracture or CT evidence of osteomyelitis. Soft tissues: No visualized abscess. No soft tissue gas. IMPRESSION: 1. No visualized abscess. No soft tissue gas. 2. No fracture or CT evidence of osteomyelitis.
[2021-11-18 22:04] LABS: Basophils # 0.2 K/mm3 (0-0.2); Hemoglobin 12.5 g/dL (12.2-16.2); Lymphocytes # 3.5 K/mm3 (0.7-4.5); Monocytes # 0.5 K/mm3 (0.1-1.0)
[2021-11-18 22:06] LABS: Basophils % 1.4 % (0.1-2.0); Eosinophils # 0.6 K/mm3 (0.0-0.4); Eosinophils % 4.7 % (0.1-12.0); Hematocrit 39.1 % (37.0-47.0); Lymphocytes % 29.1 % (10-50); Mean Corpuscular HGB Conc 31.9 g/dL (31.8-35.4); Mean Corpuscular Hemoglobin 28.3 pg (27.0-31.2); Mean Corpuscular Volume 88.7 fl (81-99); Mean Platelet Volume 7.9 fl (7.4-10.4); Monocytes % 4.2 % (1.7-9.3); Neutrophils # 7.3 K/mm3 (1.8-7.8); Neutrophils % 60.6 % (37.0-80.0); Platelet Count 663 K/mm3 (142-424); Red Blood Count 4.41 M/mm3 (4.20-5.40); Red Cell Distribution Width 16.5 % (11.5-17.5); White Blood Count 12.1 K/mm3 (4.8-10.8)
[2021-11-18 22:10] LABS: Chloride 102 mmol/L (98-107); Potassium 4.1 mmoL/L (3.5-5.1); Sodium 135 mmol/L (136-145)
[2021-11-18 22:13] LABS: Alanine Aminotransferase 37 U/L (12-78); Albumin Level 4.5 g/dl (3.5-5.0); Albumin/Globulin Ratio 1.5 (1.1-1.8); Alkaline Phosphatase 150 U/L (38-126); Anion Gap 10.1 mEq/L (5-15); Aspartate Amino Transferase 39 U/L (14-36); Bilirubin,Total 0.4 mg/dl (0.2-1.3); Blood Urea Nitrogen 9 mg/dl (7-17); Carbon Dioxide 27 mmol/L (22.0-30.0); Creatinine Clearance Estimated 131 mL/min (50-200); Estimated Glomerular Filt Rate 69 ml/min (>60); GFR (African American) 83 ML/MIN (>60); Globulin 3.1 g/dL (1.3-3.2); Total Protein,Serum 7.6 g/dl (6.3-8.2)
[2021-11-18 22:14] LABS: Calcium 9.4 mg/dl (8.4-10.2); Glucose 107 mg/dl (74-100)
[2021-11-18 22:19] LABS: C-Reactive Protein 7.6 mg/L (0-4)
[2021-11-18 23:01] VITALS: BP 146/83; PULSE 78; O2SAT 100
[2021-11-18 23:19] LABS: Creatine Kinase 31 U/L (30-135)
[2021-11-18 23:27] LABS: Lactic Acid 0.7 mmol/L (0.7-2.1)
[2021-11-18 23:30] VITALS: PULSE 78; O2SAT 100
[2021-11-19] VITALS: PULSE 80; O2SAT 100
[2021-11-19 00:30] VITALS: PULSE 70; O2SAT 99
[2021-11-19 00:38] VITALS: BP 163/98; PULSE 90; RESP 18; TEMP 36.8; O2SAT 98
== END 2021-11-19 00:40 | disposition home or self-care (01) ==
PROVIDERS: Emergency Medicine; Emergency Provider Emergency Medicine
DX: S41.152A Open bite of left upper arm, initial encounter (principal); W64.XXXA Exposure to other animate mechanical forces, initial encounter
CPT/HCPCS: 73201; 80053; 82550; 83605; 85025; 86140; 96374; 99284; Q9967